=== PATIENT | female | born 1995 | race African-American/Black ===

== ENCOUNTER 2022-09-01 22:27 | Emergency (ER) | payer OTHER ==
[2022-09-01 22:47] VITALS: PULSE 99; RESP 18; TEMP 98.4
[2022-09-01] MEDS ORDERED: ONDANSETRON 4 MG/2 ML VIAL IVP STA (23:20)
[2022-09-01 23:30] LABS: Basophils # (A) 0.1 k/uL (0-0.2); Basophils % (A) 1 %; Eosinophils # (A) 0.1 k/uL (0-0.7); Eosinophils % (A) 1 %; HCT 42.1 % (34.0-46.0); HGB 13.2 gm/dL (11.4-16.0); Hypochromasia Moderate; Lymphocytes # (A) 2.5 k/uL (1.0-4.8); Lymphocytes % (A) 31 %; MCH 22.6 pg (25.0-35.0); MCHC 31.4 g/dL (31.0-37.0); Mean Platelet Volume 7.4; Microcytosis Slight; Monocytes # (A) 0.5 k/uL (0-1.0); Monocytes % (A) 6 %; Neutrophils # (A) 4.9 k/uL (1.3-7.7); Neutrophils % (A) 59 %; Platelet Count 275 k/uL (150-450); RBC 5.85 m/uL (3.80-5.40); RDW 13.6 % (11.5-15.5); WBC 8.2 k/uL (3.8-10.6)
[2022-09-01 23:31] LABS: Appearance,Urine Clear (Clear); Bilirubin,Urine Negative (Negative); Blood,Urine Negative (Negative); Color,Urine Yellow; Glucose,Urine (UA) Negative (Negative); Ketones,Urine Negative (Negative); Leukocyte Esterase,Urine Negative (Negative); Nitrite,Urine Negative (Negative); PH, Urine 6.5 (5.0-8.0); Protein,Urine Trace (Negative); Specific Gravity,Urine 1.027 (1.001-1.035); Urobilinogen,Urine <2.0 mg/dL (<2.0)
[2022-09-01 23:35] LABS: Sodium 138 mmol/L (137-145)
[2022-09-01 23:36] LABS: ALT 30 U/L (4-34); AST 39 U/L (14-36); African American GFR (CKD) >90 (>60 ml/min/1.73 sqM); Albumin 4.8 g/dL (3.5-5.0); Alkaline Phosphatase 76 U/L (38-126); Anion Gap 13 mmol/L; Blood Urea Nitrogen 12 mg/dL (7-17); Calcium 9.5 mg/dL (8.4-10.2); Carbon Dioxide 20 mmol/L (22-30); Chloride 105 mmol/L (98-107); Glucose 90 mg/dL (74-99); Lipase 90 U/L (23-300); Non-African American GFR(CKD) >90 (>60 ml/min/1.73 sqM); Total Bilirubin 0.5 mg/dL (0.2-1.3); Total Protein 8.1 g/dL (6.3-8.2)
[2022-09-01] MEDS ORDERED: diphenhydrAMINE 50 MG/ML 1 ML VIAL IVP STA (23:39)
[2022-09-01] MEDS ORDERED: MORPHINE SULFATE 4 MG/ML SYRINGE IVP STA (23:39)
[2022-09-01] MEDS ORDERED: FAMOTIDINE 20 MG/2 ML VIAL IV STA (23:42)
[2022-09-01] MEDS ORDERED: SODIUM CHLORIDE 0.9% 1,000 ML IV ONE (23:42)
[2022-09-01] MEDS ORDERED: PANTOPRAZOLE 40 MG/10 ML VIAL IVP STA (23:42)
[2022-09-01 23:47] LABS: Potassium 4.2 mmol/L (3.5-5.1)
[2022-09-02] MEDS ORDERED: METOCLOPRAMIDE 5 MG/ML 2 ML VIAL IVP STA (00:31)
[2022-09-02] MEDS ORDERED: SODIUM CHLORIDE 0.9% 1,000 ML IV ONE (00:32)
[2022-09-02] MEDS ORDERED: MORPHINE SULFATE 4 MG/ML SYRINGE IVP STA (00:32)
--- NOTE | 2022-09-02 00:40 | ED ---
Abdominal Pain HPI - General Chief Complaint: Abdominal Pain Stated Complaint: Vomiting Time Seen by Provider: 09/01/22 22:45 Source: patient Mode of arrival: ambulatory - History of Present Illness Initial Comments: 26-year-old female with past medical history of gastritis presents emergency Department with generalized abdominal pain and intractable vomiting. States that she's had upwards of 20 episodes of vomiting. She has been through this several times before. States she lives in [place] and usually goes to sign a graze. She has had EGD performed. She hasn't followed with a GI specialist in some time as she states that she has not had any issues this summer with the vomiting. She does not take any medications at home. Denies history of ulcers. No fevers. No alcohol use. States that she usually gets a specific cocktail that helped her symptoms. Denies concern for . No chest pain or shortness of breath. No other alleviating, precipitating or modifying factors - Related Data Allergies Allergy/AdvReac Type Severity Reaction Status Date / Time Penicillins Allergy Unknown Verified 09/01/22 22:47 Sulfa (Sulfonamide Allergy Unknown Verified 09/01/22 22:47 Antibiotics) Review of Systems ROS Statement: Those systems with pertinent positive or pertinent negative responses have been documented in the HPI. ROS Other: All systems not noted in ROS Statement are negative. Past Medical History Past Medical History: Asthma Additional Past Medical History / Comment(s): gastritis History of Any Multi-Drug Resistant Organisms: None Reported Additional Past Surgical History / Comment(s): GI scopes Past Psychological History: No Psychological Hx Reported Smoking Status: Current every day smoker Past Alcohol Use History: None Reported Past Drug Use History: None Reported General Exam General appearance: alert, in distress, other (Vomiting profusely) Head exam: Present: atraumatic, normocephalic, normal inspection Eye exam: Present: normal appearance, PERRL, EOMI. Absent: scleral icterus, conjunctival injection, periorbital swelling ENT exam: Present: normal exam, mucous membranes moist Neck exam: Present: normal inspection. Absent: tenderness, meningismus, l ymphadenopathy Respiratory exam: Present: normal lung sounds bilaterally. Absent: respiratory distress, wheezes, rales, rhonchi, stridor Cardiovascular Exam: Present: regular rate, normal rhythm, normal heart sounds. Absent: systolic murmur, diastolic murmur, rubs, gallop, clicks GI/Abdominal exam: Present: soft, tenderness (Midepigastric tenderness), normal bowel sounds. Absent: distended, guarding, rebound, rigid Extremities exam: Present: normal inspection, full ROM, normal capillary refill. Absent: tenderness, pedal edema, joint swelling, calf tenderness Back exam: Present: normal inspection Neurological exam: Present: alert, oriented X3, CN II-XII intact Psychiatric exam: Present: normal affect, normal mood Skin exam: Present: warm, dry, intact, normal color. Absent: rash Course Vital Signs 09/01/22 22:44 Temperature 98.4 F Pulse Rate 99 Respiratory 18 Rate O2 Sat by Pulse 98 Oximetry Medical Decision Making - Medical Decision Making Upon arrival patient was placed into room 10. History and physical exam was performed. IV access is established. Patient is given several medications as antiemetics. Laboratory studies are conducted. Patient reevaluated. She has stopped vomiting at this time. She feels comfortable with discharge home. Instructed to follow-up with her GI doctor for further evaluation and return for any new or worsening symptoms. Patient was agreeable and discharged home stable condition - Lab Data Result diagrams: 09/01/22 23:14 09/01/22 23:25 Lab Results 09/01/22 09/01/22 09/01/22 Range/Units 23:14 23:14 23:14 WBC 8.2 (3.8-10.6) k/uL RBC 5.85 H (3.80-5.40) m/uL Hgb 13.2 (11.4-16.0) gm/dL Hct 42.1 (34.0-46.0) % MCV 72.0 L (80.0-100.0) fL MCH 22.6 L (25.0-35.0) pg MCHC 31.4 (31.0-37.0) g/dL RDW 13.6 (11.5-15.5) % Plt Count 275 (150-450) k/uL MPV 7.4 Neutrophils % 59 % Lymphocytes % 31 % Monocytes % 6 % Eosinophils % 1 % Basophils % 1 % Neutrophils # 4.9 (1.3-7.7) k/uL Lymphocytes # 2.5 (1.0-4.8) k/uL Monocytes # 0.5 (0-1.0) k/uL Eosinophils # 0.1 (0-0.7) k/uL Basophils # 0.1 (0-0.2) k/uL Hypochromasia Moderate Microcytosis Slight Sodium (137-145) mmol/L Potassium (3.5-5.1) mmol/L Chloride (98-107) mmol/L Carbon Dioxide (22-30) mmol/L Anion Gap mmol/L BUN (7-17) mg/dL Creatinine (0.52-1.04) mg/dL Est GFR (CKD-EPI)AfAm (>60 ml/min/1.73 sqM) Est GFR (CKD-EPI)NonAf (>60 ml/min/1.73 sqM) Glucose (74-99) mg/dL Plasma Lactic Acid Mick 1.0 (0.7-2.0) mmol/L Calcium (8.4-10.2) mg/dL Total Bilirubin (0.2-1.3) mg/dL AST (14-36) U/L ALT (4-34) U/L Alkaline Phosphatase (38-126) U/L Total Protein (6.3-8.2) g/dL Albumin (3.5-5.0) g/dL Lipase (23-300) U/L Urine Color Yellow Urine Appearance Clear (Clear) Urine pH 6.5 (5.0-8.0) Ur Specific [place] 1.027 (1.001-1.035) Urine Protein Trace H (Negative) Urine Glucose (UA) Negative (Negative) Urine Ketones Negative (Negative) Urine Blood Negative (Negative) Urine Nitrite Negative (Negative) Urine Bilirubin Negative (Negative) Urine Urobilinogen <2.0 (<2.0) mg/dL Ur Leukocyte Esterase Negative (Negative) Urine HCG, Qual (Not Detectd) 09/01/22 09/01/22 Range/Units 23:14 23:25 WBC (3.8-10.6) k/uL RBC (3.80-5.40) m/uL Hgb (11.4-16.0) gm/dL Hct (34.0-46.0) % MCV (80.0-100.0) fL MCH (25.0-35.0) pg MCHC (31.0-37.0) g/dL RDW (11.5-15.5) % Plt Count (150-450) k/uL MPV Neutrophils % % Lymphocytes % % Monocytes % % Eosinophils % % Basophils % % Neutrophils # (1.3-7.7) k/uL Lymphocytes # (1.0-4.8) k/uL Monocytes # (0-1.0) k/uL Eosinophils # (0-0.7) k/uL Basophils # (0-0.2) k/uL Hypochromasia Microcytosis Sodium 138 (137-145) mmol/L Potassium 4.2 (3.5-5.1) mmol/L Chloride 105 (98-107) mmol/L Carbon Dioxide 20 L (22-30) mmol/L Anion Gap 13 mmol/L BUN 12 (7-17) mg/dL Creatinine 0.68 (0.52-1.04) mg/dL Est GFR (CKD-EPI)AfAm >90 (>60 ml/min/1.73 sqM) Est GFR (CKD-EPI)NonAf >90 (>60 ml/min/1.73 sqM) Glucose 90 (74-99) mg/dL Plasma Lactic Acid Mick (0.7-2.0) mmol/L Calcium 9.5 (8.4-10.2) mg/dL Total Bilirubin 0.5 (0.2-1.3) mg/dL AST 39 H (14-36) U/L ALT 30 (4-34) U/L Alkaline Phosphatase 76 (38-126) U/L Total Protein 8.1 (6.3-8.2) g/dL Albumin 4.8 (3.5-5.0) g/dL Lipase 90 (23-300) U/L Urine Color Urine Appearance (Clear) Urine pH (5.0-8.0) Ur Specific [place] (1.001-1.035) Urine Protein (Negative) Urine Glucose (UA) (Negative) Urine Ketones (Negative) Urine Blood (Negative) Urine Nitrite (Negative) Urine Bilirubin (Negative) Urine Urobilinogen (<2.0) mg/dL Ur Leukocyte Esterase (Negative) Urine HCG, Qual Not Detected (Not Detectd) Disposition Clinical Impression: Vomiting Disposition: HOME SELF-CARE Condition: Stable Instructions (If sedation given, give patient instructions): Acute Nausea and Vomiting (ED) Is patient prescribed a controlled substance at d/c from ED?: No Referrals: Nonstaff,Physician [Primary Care Provider] - 1-2 days Time of Disposition: 01:13
== END 2022-09-02 02:16 | disposition home or self-care (01) ==
LOC: EC 22:27
DX: R11.10 Vomiting, unspecified (principal); J45.909 Unspecified asthma, uncomplicated; Z88.0 Allergy status to penicillin; Z88.2 Allergy status to sulfonamides
CPT/HCPCS: 36415; 80053; 83605; 83690; 85025; 81003; 81025; 99284; 96374; 96375 ×5; 96376; 96361; J2270 ×2; J1200; J2765; J2405; C9113

== ENCOUNTER 2022-11-20 11:50 | Emergency (ER) | payer OTHER ==
--- NOTE | 2022-11-20 11:59 | ED ---
General Adult HPI <Neela Gifford - Last Filed: 11/20/22 11:55> - General Source: RN notes reviewed <Lynette Bowen - Last Filed: 11/20/22 18:48> - General Chief complaint: Extremity Injury, Upper Stated complaint: finger injury - History of Present Illness Initial comments: Patient is a 27-year-old -[place] female presenting to the emergency room with complaints of injury to the third digit on her left hand after crushing it and her car door 2 days ago. She reports that she has full range of motion but is concerned regarding the nail near avulsion. She denies any purulent drainage, significant swelling, fevers or chills. Her tetanus is up-to-date. (Neela Gifford) - Related Data Allergies Allergy/AdvReac Type Severity Reaction Status Date / Time Penicillins Allergy Unknown Verified 11/20/22 12:28 Sulfa (Sulfonamide Allergy Unknown Verified 11/20/22 12:28 Antibiotics) Review of Systems ROS Other: All systems not noted in ROS Statement are negative. <Neela Gifford - Last Filed: 11/20/22 11:55> ROS Other: All systems not noted in ROS Statement are negative. <Lynette Bowen - Last Filed: 11/20/22 18:48> ROS Statement: Those systems with pertinent positive or pertinent negative responses have been documented in the HPI. Past Medical History Past Medical History: Asthma Additional Past Medical History / Comment(s): gastritis History of Any Multi-Drug Resistant Organisms: None Reported Additional Past Surgical History / Comment(s): GI scopes Past Psychological History: No Psychological Hx Reported Smoking Status: Current every day smoker Past Alcohol Use History: None Reported Past Drug Use History: None Reported <Neela Gifford - Last Filed: 11/20/22 11:55> General Exam General appearance: alert, in no apparent distress Head exam: Present: atraumatic, normocephalic, normal inspection Eye exam: Present: normal appearance, PERRL, EOMI. Absent: scleral icterus, conjunctival injection, periorbital swelling ENT exam: Present: normal exam, mucous membranes moist Neck exam: Present: normal inspection. Absent: tenderness, meningismus, lymphadenopathy Respiratory exam: Present: normal lung sounds bilaterally. Absent: respiratory distress, wheezes, rales, rhonchi, stridor Cardiovascular Exam: Present: regular rate, normal rhythm, normal heart sounds. Absent: systolic murmur, diastolic murmur, rubs, gallop, clicks GI/Abdominal exam: Present: soft, normal bowel sounds. Absent: distended, tenderness, guarding, rebound, rigid Extremities exam: Present: normal inspection, full ROM, normal capillary refill. Absent: tenderness, pedal edema, joint swelling, calf tenderness Left Hand L/R Back: 1 - L 4th digit with nail avulsion, no active bleeding, erythema, edema. 2+ radial pulses, NVI Back exam: Present: normal inspection Neurological exam: Present: alert, oriented X3, CN II-XII intact Psychiatric exam: Present: normal affect, normal mood Skin exam: Present: warm, dry, intact, normal color. Absent: rash <Lynette Bowen - Last Filed: 11/20/22 18:48> Course Vital Signs 11/20/22 12:26 Temperature 98.2 F Pulse Rate 84 Respiratory 20 Rate Blood Pressure 111/68 O2 Sat by Pulse 100 Oximetry Medical Decision Making <Lynette Bowen - Last Filed: 11/20/22 18:48> - Medical Decision Making Was pt. sent in by a medical professional or institution? @ -Self Did you speak to anyone other than the patient for history? @ -patient Did you review nursing and triage notes? @ -I reviewed the RN and PA-C triage notes Were old charts reviewed? @ None Differential Diagnosis? @ -Abscess, laceration, parenychia EKG interpreted by me (3pts min.)? @ -[none] X-rays interpreted by me (1pt min.)? @ negative for fracture CT interpreted by me (1pt min.)? @ -[none] U/S interpreted by me (1pt. min.)? @ -[none] What testing was considered but not performed? (CT, X-rays, U/S, labs)? Why? @ [CT, X-rays, U/S, labs? Why?] What meds were considered but not given? Why? @ -[none] Did you discuss the management of the patient with other professionals? @ I discussed the case with Dr. Baron who agrees with the plan for discharge Did you reconcile home meds? @ -[none] Was smoking cessation discussed for >3mins.? @ -[none] Was critical care preformed (if so, how long)? @ -[none] Were there social determinants of health that impacted care today? How? (Homelessness, low income, unemployed, alcoholism, drug addiction, transportation, low edu. Level, literacy, decrease access to med. care, alf, rehab)? @ -[Homelessness, low income, unemployed, alcoholism, drug addiction, transportation, low edu. Level, literacy, decrease access to med. care, alf, rehab?] Was there de-escalation of care discussed even if they declined? (Discuss DNR or withdrawal of care, Hospice)? @ -[Discuss DNR or withdrawal of care, Hospice?] What co-morbidities impacted this encounter? (DM, HTN, Smoking, COPD, CAD, Cancer, CVA, Hep., AIDS, mental health diagnosis, sleep apnea, morbid obesity)? @ -[DM, HTN, Smoking, COPD, CAD, Cancer, CVA, Hep., AIDS, mental health diagnosis, sleep apnea, morbid obesity?] Was patient admitted / discharged? @ Discharged in stable condition with recommend close follow up with PCP in 1-2 days Undiagnosed new problem with uncertain prognosis? @ -Nail avulsion Drug Therapy requiring intensive monitoring for toxicity (Heparin, Nitro, Insulin, Cardizem)? @ -[none] Were any procedures done? @ -nail was soaked and removed without any complications n Diagnosis/symptom? @ Nail avulsion secondary to trauma Acute, or Chronic, or Acute on Chronic? @ -Acute Uncomplicated (without systemic symptoms) or Complicated (systemic symptoms)? @ -uncomplicated Side effects of treatment? @ -No Exacerbation, Progression, or Severe Exacerbation] @ -[no] Poses a threat to life or bodily function? @ -Low likelihood (Lynette Bowen) Disposition <Neela Gifford - Last Filed: 11/20/22 11:55> Is patient prescribed a controlled substance at d/c from ED?: No Time of Disposition: 13:42 <Lynette Bowen - Last Filed: 11/20/22 18:48> Clinical Impression: Nail avulsion, finger Disposition: HOME SELF-CARE Condition: Stable Instructions (If sedation given, give patient instructions): Acute Wound Care (ED) Referrals: Nonstaff,Physician [Primary Care Provider] - 1-2 days
--- NOTE | 2022-11-20 12:17 | XR ---
EXAMINATION TYPE: XR finger LT TECHNIQUE: 3 views coned down left fourth digit DATE OF EXAM: 11/20/2022 Comparison: None Clinical History: 27-year-old female pain, crush injury Findings: There appears to be a nail avulsion. Hyperdensities projecting on the nail could represent ornamentat ion or debris and should be correlated clinically. No underlying acute fracture, subluxation, disloca tion seen. Impression: Findings suggest nail avulsion of the fourth finger. No underlying acute osseous abnormality seen.
[2022-11-20 12:28] VITALS: BP 111/68; PULSE 84; RESP 20; TEMP 98.2
[2022-11-20] MEDS ORDERED: LIDOCAINE 1% INJ 10MG/ML (30 ML VIAL-PF) SQ ONE (13:30)
== END 2022-11-20 14:35 | disposition home or self-care (01) ==
LOC: EC 11:50
DX: S61.305A Unspecified open wound of left ring finger with damage to nail, initial encounter (principal); J45.909 Unspecified asthma, uncomplicated; Z88.0 Allergy status to penicillin; Z88.2 Allergy status to sulfonamides; F17.200 Nicotine dependence, unspecified, uncomplicated; Z88.1 Allergy status to other antibiotic agents; W23.0XXA Caught, crushed, jammed, or pinched between moving objects, initial encounter
CPT/HCPCS: 99283